=== PATIENT | male | born 1945 | race Caucasian/White ===

== ENCOUNTER 2020-05-24 15:45 | Emergency (ER) | payer MEDICARE, BC ==
[~2020-05-24] VITALS: Ht 182.9 cm; Wt 81.6 kg
--- NOTE | 2020-05-24 15:45 | NUR ---
PT BIBRA 787 C/O DIZZINESS AND WEAKNESS WHILE DRIVING AND VOMITING X1. PT IS AAOX4, NOT IN RESPIRATORY DISTRESS, HOOKED TO RADIATOR CLEANER, KEPT RESTED AND COMFORTABLE. WILL CONTINUE TO MONITOR.
--- NOTE | 2020-05-24 16:16 | NUR ---
SEEN AND EXAMINED BY
--- NOTE | 2020-05-24 16:25 | NUR ---
IV LINE ESTABLISHED BLOOD DRAWN AND SENT TO LAB.
[2020-05-24] MEDS ORDERED: MECLIZINE HCL 12.5 MG TABLET PO ONE (16:30)
[2020-05-24] MEDS ORDERED: ONDANSETRON HCL/PF - ER 4 MG/2 ML VIAL IV ONE (16:30)
--- NOTE | 2020-05-24 16:36 | NUR ---
PT IS WHEELED TO CT SCAN VIA [facility].
[2020-05-24] MEDS ORDERED: ONDANSETRON HCL/PF 4 MG/2 ML VIAL ONE (16:49)
[2020-05-24] MEDS ORDERED: MECLIZINE HCL 25 MG TABLET ONE (16:49)
[2020-05-24 17:09] LABS: BASOPHILS % (AUTO) 0.2 % (0.0-2.0); HEMATOCRIT 53 % (39-51); HEMOGLOBIN 17.5 g/dL (13.5-17.5); LYMPHOCYTES # (AUTO) 1.1 /CMM (0.8-4.8); LYMPHOCYTES % (AUTO) 13.3 % (20.0-44.0); MEAN CORPUSCULAR HGB CONC 33 g/dl (31.0-36.0); MEAN CORPUSCULAR VOLUME 104 fL (80-96); MONOCYTES # (AUTO) 0.5 /CMM (0.1-1.30); MONOCYTES % (AUTO) 6.3 % (2.0-12.0); NEUTROPHILS # (AUTO) 6.3 /CMM (1.8-8.9); NEUTROPHILS % (AUTO) 78.2 % (43.0-81.0); PLATELET COUNT (AUTO) 162 /CMM (150-450); RED BLOOD CELL COUNT(AUTO) 5.14 MIL/uL (4.5-6.0)
--- NOTE | 2020-05-24 17:45 | NUR ---
CALLED PHARMACY FOR NICARDIPINE DRIP STAT.
[2020-05-24 18:00] LABS: CALCIUM, SERUM 8.9 mg/dL (8.5-10.1); CARBON DIOXIDE 30 mmol/L (21-32); CHLORIDE 105 mmol/L (98-107); CREATININE 1.7 mg/dL (0.6-1.3); GLUCOSE 155 mg/dL (74-106); POTASSIUM 4.7 mmol/L (3.5-5.1); SODIUM SERUM 141 mmol/L (136-145); UREA NITROGEN, BLOOD 20 mg/dL (7-18)
[2020-05-24] MEDS ORDERED: NICARDIPINE HCL 40 MG in IV NS 0.9% 184 ML IV PRN (18:00)
[2020-05-24] MEDS ORDERED: NICARDIPINE IN NACL, ISO-OSM 200 ML IV PRN (18:00)
--- NOTE | 2020-05-24 18:04 | NUR ---
FAXED FACE SHEET AND CT RESULT TO [facility]
[2020-05-24 18:06] LABS: ALANINE AMINOTRANSFERASE 32 U/L (12-78); ALBUMIN 3.4 g/dL (3.4-5.0); ALKALINE PHOSPHATASE 63 U/L (46-116); ASPARTATE AMINOTRANSFERASE 20 U/L (15-37); BILIRUBIN,DIRECT 0.2 mg/dL (0.0-0.2); BILIRUBIN,TOTAL 0.5 mg/dL (0.2-1.0); TOTAL PROTEIN, SERUM 7.1 g/dL (6.4-8.2)
--- NOTE | 2020-05-24 18:24 | NUR ---
PT accepted to [facility]. ETA for critical care transport team is 20min
--- NOTE | 2020-05-24 18:35 | NUR ---
Incoming call ,Patient spouse Deanne. Patient informed that spouse is calling. Patient agree to share PHI with spouse . Informed patient has Stroke,bleeding, plan to be seen by Neurologist. Patient denies pain,speech clear,,equal smile, awake alert ,oriented to time ,place,person, +CMS.
[2020-05-24 18:42] VITALS: BP 165/102
--- NOTE | 2020-05-24 19:00 | NUR ---
REPORT GIVEN TO CCT NURSE FOR TRACE. WITH ONGOING IV NICARDIPINE DRIP TITRATE TO EFFECT.
== END 2020-05-24 19:11 | disposition short-term general hospital (02) ==
LOC: ER 15:51
DX: I61.4 Nontraumatic intracerebral hemorrhage in cerebellum (principal); R53.1 Weakness; I11.9 Hypertensive heart disease without heart failure; Z20.828 Contact with and (suspected) exposure to other viral communicable diseases; Z85.528 Personal history of other malignant neoplasm of kidney; Z90.5 Acquired absence of kidney; E78.5 Hyperlipidemia, unspecified; I25.10 Atherosclerotic heart disease of native coronary artery without angina pectoris; Z95.5 Presence of coronary angioplasty implant and graft; Z88.0 Allergy status to penicillin; R91.8 Other nonspecific abnormal finding of lung field; R94.31 Abnormal electrocardiogram [ECG] [EKG]; R77.8 Other specified abnormalities of plasma proteins; E11.9 Type 2 diabetes mellitus without complications; N28.9 Disorder of kidney and ureter, unspecified
CPT/HCPCS: 36415; 70450; 71045; 80048; 80076; 82962; 84484; 85025; 87426; 93005; 96365; 96375; 99291; J2405 ×2; J7040; J8597; C9803; J7050